=== PATIENT | female | born 1965 | race Two or more races ===

== ENCOUNTER → 2018-05-15 | Outpatient (CLI) | payer OTHER | END | disposition home or self-care (01) | LOC: RAD 15:17 | PROVIDERS: ATTEND Physician Assistant | DX: N85.2 Hypertrophy of uterus (principal); D25.9 Leiomyoma of uterus, unspecified | CPT/HCPCS: 76830 ==

== ENCOUNTER → 2018-07-07 | Outpatient (CLI) | payer OTHER | END | disposition home or self-care (01) | LOC: CFH 12:57 | PROVIDERS: ATTEND Nurse Practitioner Family | DX: Z02.9 Encounter for administrative examinations, unspecified (principal) ==

== ENCOUNTER → 2018-08-13 | Outpatient (CLI) | payer OTHER | END | disposition home or self-care (01) | LOC: RAD 15:03 | PROVIDERS: ATTEND Physician Assistant | DX: M25.561 Pain in right knee (principal); R60.0 Localized edema ==

== ENCOUNTER 2019-02-17 15:17 | Outpatient (CLI) | payer OTHER | END 2019-02-17 23:59 | disposition home or self-care (01) | LOC: CFH 15:17 | PROVIDERS: ATTEND Internal Medicine | DX: R59.9 Enlarged lymph nodes, unspecified (principal) | CPT/HCPCS: 76536 ==